=== PATIENT | male | born 1965 | race Caucasian/White ===

== ENCOUNTER → 2017-02-09 | Outpatient (REF) | payer BC ==
[2017-02-09 11:36] LABS: PERCENT SATURATION 46.7 % (19.7-37.4)
== END ==
LOC: M LAB REF 11:08
PROVIDERS: ATTEND Internal Medicine Medical Oncology
DX: E83.119 Hemochromatosis, unspecified (principal)

== ENCOUNTER → 2017-06-22 | Outpatient (REF) | payer BC ==
[2017-06-22 13:42] LABS: PERCENT SATURATION 37.1 % (19.7-50.0)
== END ==
LOC: M LAB REF 12:32
PROVIDERS: ATTEND Internal Medicine Medical Oncology
DX: E83.119 Hemochromatosis, unspecified (principal)

== ENCOUNTER → 2017-12-21 | Outpatient (REF) | payer BC ==
[2017-12-21 14:25] LABS: FERRITIN 70 NG/ML (26-388); IRON (FE) 87 UG/DL (65-175); PERCENT SATURATION 28.3 % (19.7-50.0); TOTAL IRON BINDING CAPACITY 307 UG/DL (250-450)
== END ==
LOC: M LAB REF 13:19
DX: E83.111 Hemochromatosis due to repeated red blood cell transfusions (principal)
CPT/HCPCS: 83550

== ENCOUNTER 2018-11-15 07:28 | Day surgery (SDC) | payer BC ==
[~2018-11-15] VITALS: Ht 170.2 cm; Wt 65.8 kg
[~2018-11-15 07:28] MED LIST: BUPR150T3 PO; PROPOFOL 200 MG/20 ML VIAL As Ordered ONE
[2018-11-15] MEDS ORDERED: NS 1,000 ML IV ONE (08:00)
--- NOTE | 2018-11-15 09:06 | ROOR ---
Patient Name: Gregg Ingram Procedure Date: 11/15/2018 8:25 AM Date of : 1965 Age: 53 Room: [facility] Gender: Male Note Status: Finalized Procedure: Colonoscopy Indications: Screening for colorectal malignant neoplasm Providers: Ryan BOOTH MD Referring MD: Laura Mckeon NP Requesting Provider: Medicines: Monitored Anesthesia Care Complications: No immediate complications. Procedure: Pre-Anesthesia Assessment: - The heart rate, respiratory rate, oxygen saturations, blood pressure, adequacy of pulmonary ventilation, and response to care were monitored throughout the procedure. The Colonoscope was introduced through the anus and advanced to the cecum, identified by appendiceal orifice and ileocecal valve. The colonoscopy was performed without difficulty. The patient tolerated the procedure well. The quality of the bowel preparation was good. Findings: The perianal and digital rectal examinations were normal. Six pedunculated and sessile polyps were found in the sigmoid colon and distal descending colon. The polyps were 5 to 10 mm in size. 3 larger polyps were removed with a hot snare. Resection and retrieval were complete. Three smaller polyps were removed with a cold snare. Resection and retrieval were complete. Small Internal Hemorrhoids. The sigmoid colon revealed excessive looping. The exam was otherwise without abnormality on direct and retroflexion views. Impression: - Six 5 to 10 mm polyps in the sigmoid and distal descending colon, removed with cold and hot snare. Resected and retrieved. - Small Internal Hemorrhoids. - The examination was otherwise normal on direct and retroflexion views. Recommendation: - Repeat colonoscopy in 3 years for surveillance. Ryan Booth MD Ryan BOOTH MD 11/15/2018 9:05:45 AM This report has been signed electronically. Number of Addenda: 0 Note Initiated On: 11/15/2018 8:25 AM Estimated Blood Loss: Estimated blood loss: none.
[2018-11-15 09:20] VITALS: BP 113/84
== END 2018-11-15 09:25 | disposition home or self-care (01) ==
LOC: M OPP 07:28
PROVIDERS: ATTEND Internal Medicine Gastroenterology
DX: D12.5 Benign neoplasm of sigmoid colon (principal); D12.4 Benign neoplasm of descending colon; K64.8 Other hemorrhoids; Z12.11 Encounter for screening for malignant neoplasm of colon

== ENCOUNTER → 2020-03-04 | Outpatient (REF) | payer BC ==
[~2020-03-04] MED LIST changes: -PROPOFOL 200 MG/20 ML VIAL As Ordered ONE
== END ==
LOC: M LAB REF 12:48
PROVIDERS: ATTEND Nurse Practitioner Adult Health
DX: Z72.51 High risk heterosexual behavior (principal)

== ENCOUNTER → 2020-07-27 | Outpatient (CLI) | payer BC ==
[~2020-07-27] MED LIST changes: +PROHANCE 279.3MG/ML 15ML VIAL As Ordered ONE
--- NOTE | 2020-07-27 13:11 | REP ---
INDICATION: IRON OVERLOAD, HEMACHROMATOSIS FILE ROOM. COMPARISON: None. TECHNIQUE: Multiple sequences are obtained in the axial coronal planes prior to and following the intravenous administration of 14 mL ProHance. FINDINGS: The liver demonstrates normal signal and enhancement. There is no MR evidence of significant iron deposition. No liver mass is seen. Liver is normal in size. There is no intrahepatic or extrahepatic biliary dilatation. Gallbladder is grossly unremarkable with no wall edema or intrinsic filling defect. The spleen is normal in size with a length of 10.7 cm. The adrenal glands are normal. The pancreas demonstrates homogeneous signal and enhancement. There is no pancreatic duct dilatation. Kidneys demonstrate no mass or hydronephrosis. I see no adenopathy or free fluid in the abdomen. IMPRESSION: Essentially negative MRI of the abdomen with and without contrast. The liver demonstrates no signal abnormalities or abnormal enhancement. There is no significant iron deposition in the liver. <Electronically signed by Brent Chacon > 07/27/20 [id number]
== END ==
LOC: M RAD 11:21
PROVIDERS: ATTEND Internal Medicine Medical Oncology
DX: E83.110 Hereditary hemochromatosis (principal)
CPT/HCPCS: 74183; A9576

== ENCOUNTER → 2020-08-25 | Outpatient (REF) | payer BC ==
[~2020-08-25] MED LIST changes: -PROHANCE 279.3MG/ML 15ML VIAL As Ordered ONE
== END ==
LOC: M LAB REF 16:47
PROVIDERS: ATTEND Nurse Practitioner Adult Health
DX: A63.0 Anogenital (venereal) warts (principal)

== ENCOUNTER → 2020-10-05 | Outpatient (CLI) | payer SELFPAY ==
[~2020-10-05] MED LIST changes: -BUPR150T3 PO; +BUPR150T4 PO
== END ==
LOC: M LABSMTC 11:34
PROVIDERS: ATTEND Pediatrics
DX: Z20.828 Contact with and (suspected) exposure to other viral communicable diseases (principal)

== ENCOUNTER → 2020-11-24 | Outpatient (REF) | payer BC ==
[~2020-11-24] MED LIST changes: +BUPR150T12 PO; -BUPR150T4 PO
[2020-11-24 14:13] LABS: HIV 1&2 SCREEN CENTAUR NEGATIVE (NEGATIVE)
[2020-11-26 10:25] LABS: HEPATITIS A ANTIBODY IGM NEGATIVE (NEGATIVE); HEPATITIS B CORE ANTIBODY IGM NEGATIVE (NEGATIVE); HEPATITIS B SURFACE ANTIGEN NEGATIVE (NEGATIVE); HEPATITIS C VIRUS ABY INDEX < 0.0 INDEX (<0.8)
== END ==
LOC: M LAB REF 12:13
PROVIDERS: ATTEND Nurse Practitioner Adult Health
DX: A63.0 Anogenital (venereal) warts (principal); Z72.52 High risk homosexual behavior; Z72.51 High risk heterosexual behavior

== ENCOUNTER → 2022-02-26 | Outpatient (CLI) | payer BC ==
[~2022-02-26] MED LIST changes: +EMTR1TAB3 PO; +INOS650T3 PO
== END ==
LOC: M LABSMTC 09:20
PROVIDERS: ATTEND Anesthesiology
DX: Z01.812 Encounter for preprocedural laboratory examination (principal); Z20.822 Contact with and (suspected) exposure to COVID-19

== ENCOUNTER 2022-03-02 08:22 | Day surgery (SDC) | payer BC ==
[~2022-03-02] VITALS: Ht 170.2 cm; Wt 67.1 kg
[~2022-03-02 08:22] MED LIST changes: +NS 1,000 ML IV ONE
[2022-03-02] MEDS ORDERED: propofoL 200 MG/20 ML VIAL As Ordered ONE ×2 (09:29→09:45)
[2022-03-02 10:15] VITALS: BP 118/85
== END 2022-03-02 10:28 | disposition home or self-care (01) ==
LOC: M OPP 08:22
PROVIDERS: ATTEND Internal Medicine Gastroenterology
DX: Z12.11 Encounter for screening for malignant neoplasm of colon (principal); Z86.010 Personal history of colon polyps; K57.30 Diverticulosis of large intestine without perforation or abscess without bleeding; K64.8 Other hemorrhoids; E83.119 Hemochromatosis, unspecified; Z79.899 Other long term (current) drug therapy

== ENCOUNTER → 2022-07-25 | Outpatient (CLI) | payer BC ==
[~2022-07-25] MED LIST changes: -NS 1,000 ML IV ONE
== END ==
LOC: M RAD 08:48
PROVIDERS: ATTEND Nurse Practitioner Adult Health
DX: Z12.2 Encounter for screening for malignant neoplasm of respiratory organs (principal); Z87.891 Personal history of nicotine dependence

== ENCOUNTER → 2023-10-24 | Outpatient (REF) | payer BC | LOC: M LAB REF 16:40 | PROVIDERS: ATTEND Physician Assistant Medical | DX: Z72.53 High risk bisexual behavior (principal) ==

== ENCOUNTER → 2023-12-11 | Outpatient (CLI) | payer BC | LOC: M RAD 16:35 | PROVIDERS: ATTEND Internal Medicine Medical Oncology | DX: Z12.2 Encounter for screening for malignant neoplasm of respiratory organs (principal); F17.210 Nicotine dependence, cigarettes, uncomplicated; E83.110 Hereditary hemochromatosis; J45.909 Unspecified asthma, uncomplicated ==

== ENCOUNTER → 2024-08-06 | Outpatient (REF) | payer BC ==
[2024-08-06 17:08] LABS: APPEARANCE, URINE CLEAR (CLEAR); BACTERIA, URINE AUTO NEGATIVE (NEGATIVE); BILIRUBIN, URINE AUTO NEGATIVE (NEGATIVE); BLOOD, URINE BLOOD 1+ (NEGATIVE); COLOR, URINE YELLOW (YELLOW); GLUCOSE, URINE (UA) AUTO NEGATIVE (NEGATIVE); KETONE, URINE AUTO NEGATIVE (NEGATIVE); LEUKOCYTE ESTERASE, URINE AUTO NEGATIVE (NEGATIVE); NITRITE, URINE AUTO NEGATIVE (NEGATIVE); PROTEIN, URINE AUTO NEGATIVE (NEGATIVE); RBC, URINE AUTO 2 /HPF (0-3); SPECIFIC GRAVITY URINE AUTO 1.015 (1.002-1.035); SQUAMOUS EPITHELIAL CELL UR AU 0 /HPF (0-6); UROBILINOGEN, URINE AUTO 0.2 mg/dL (0.0-2.0); WBC, URINE AUTO 0 /HPF (0-3)
== END ==
LOC: M LAB REF 16:42
PROVIDERS: ATTEND Internal Medicine
DX: Z01.810 Encounter for preprocedural cardiovascular examination (principal)

== ENCOUNTER → 2024-12-17 | Outpatient (CLI) | payer BC | LOC: M RAD 08:57 | PROVIDERS: ATTEND Internal Medicine Medical Oncology | DX: Z12.2 Encounter for screening for malignant neoplasm of respiratory organs (principal); Z87.891 Personal history of nicotine dependence ==

== ENCOUNTER → 2025-07-14 | Outpatient (CLI) | payer BC | LOC: M RAD 11:49 | PROVIDERS: ATTEND Physician Assistant | DX: I83.11 Varicose veins of right lower extremity with inflammation (principal); I83.12 Varicose veins of left lower extremity with inflammation ==